=== PATIENT | male | born 1960 | race Caucasian/White ===

== ENCOUNTER → 2019-11-20 | Outpatient (CLI) | payer OTHER ==
[~2019-11-20] MED LIST: OMNIPAQUE 350 MG/ML, 75ML BOTTLE ONE
== END | disposition home or self-care (01) ==
LOC: CFH 12:09
PROVIDERS: ATTEND Student in an Organized Health Care Education/Training Program
DX: H05.89 Other disorders of orbit (principal); D49.2 Neoplasm of unspecified behavior of bone, soft tissue, and skin; H02.7 Other and unspecified degenerative disorders of eyelid and periocular area
CPT/HCPCS: 70481; Q9967

== ENCOUNTER → 2019-11-25 | Outpatient (CLI) | payer OTHER | END | disposition home or self-care (01) | LOC: STAR 15:07 | PROVIDERS: ATTEND Anesthesiology | DX: Z01.818 Encounter for other preprocedural examination (principal); Z01.89 Encounter for other specified special examinations; I45.10 Unspecified right bundle-branch block; R79.1 Abnormal coagulation profile | CPT/HCPCS: 93005 ==

== ENCOUNTER → 2020-01-07 | Outpatient (CLI) | payer OTHER ==
[~2020-01-07] MED LIST changes: +FENTANYL PF 100 MCG/2ML ONE; -OMNIPAQUE 350 MG/ML, 75ML BOTTLE ONE; +OXYcodone 5 MG/5 ML ORAL.SOL UDC ONE
== END | disposition home or self-care (01) ==
LOC: PETCFH 12:19
PROVIDERS: ATTEND Ophthalmology
DX: C85.90 Non-Hodgkin lymphoma, unspecified, unspecified site (principal); K57.30 Diverticulosis of large intestine without perforation or abscess without bleeding; K40.90 Unilateral inguinal hernia, without obstruction or gangrene, not specified as recurrent; R22.0 Localized swelling, mass and lump, head
CPT/HCPCS: 78815; A9552